=== PATIENT | male | born 1940 | race Caucasian/White ===

== ENCOUNTER 2020-07-19 14:27 | Inpatient (IN) | payer MEDICARE, BC ==
[~2020-07-19] VITALS: Ht 170.2 cm; Wt 60.2 kg
[~2020-07-19 14:27] MED LIST: ATOR10; DONE10 PO; FISH1000 PO; GLUCHON PO; IBUP400 PO; IPRA.03NI; LATA.005SO BOTHEYES; LOSA25 PO; LOSA50 PO; MULVITMIND PO; NASAL SPRAY; Prilosec Otc20 MG; RABE20 PO; TAMS.4ER PO; TIMO.5OPS BOTHEYES
[2020-07-19 15:17] LABS: BASOPHILS ABSOLUTE AUTO 0.04 K/mm3 (0.00-0.23); BASOPHILS PERCENT AUTO 0 % (0-2); EOSINOPHILS PERCENT AUTO 0 % (0-6); Hematocrit 35.8 % (37.0-53.0); Hemoglobin 11.8 g/dL (13.5-17.5); IMMATURE GRAN ABSOLUTE AUTO 0.06 K/mm3 (0.00-0.10); IMMATURE GRAN PERCENT AUTO 0 % (0-1); LYMPHOCYTES ABSOLUTE AUTO 0.37 K/mm3 (0.84-5.20); LYMPHOCYTES PERCENT AUTO 3 % (21-46); MONOCYTES ABSOLUTE AUTO 0.93 K/mm3 (0.16-1.47); MONOCYTES PERCENT AUTO 6 % (4-13); Mean Corpuscular HGB 28.9 pg (26.0-34.0); Mean Corpuscular Volume 88 fL (80-100); Mean Platelet Volume 9.5 fL (9.1-12.4); NEUTROPHILS ABSOLUTE AUTO 13.06 K/mm3 (1.96-9.15); NEUTROPHILS PERCENT AUTO 90 % (41-73); Platelet Count 201 K/mm3 (150-400); RDW Coefficient Variation 14.4 % (11.7-14.2); RDW Standard Deviation 46.1 fL (35.1-46.3); Red Blood Cell Count 4.08 M/mm3 (4.30-5.90); White Blood Cell Count 14.46 K/mm3 (4.00-11.30)
[2020-07-19 15:45] LABS: Albumin, Blood 2.4 g/dL (3.4-5.0); Albumin/Globulin Ratio 0.6 (0.8-1.8); Bilirubin, Total 0.8 mg/dL (0.1-1.0); Bun/Creatinine Ratio 11.1 (12.0-20.0); Creatinine, Blood 9.3 mg/dL (0.60-1.20); Globulin, Blood 3.9 g/dL (2.2-4.0); Potassium, Blood 4.1 mmol/L (3.5-5.5); Total Protein, Blood 6.3 g/dL (6.4-8.2)
[2020-07-19 16:03] LABS: Creatine Kinase MB 7.1 ng/mL (0.0-3.6); Creatine Kinase MB Index 1.3 (0.0-4.0)
[2020-07-19 18:08] LABS: Source, Urine Catheter
[2020-07-19 18:11] LABS: Appearance, Urine Hazy (Clear); Bilirubin, Urine Neg (Neg); Blood, Urine 4+ (Neg); Color, Urine Amber (P-Yellow); Glucose Qualitative, Urine Neg (Neg); Ketones, Urine 1+ (Neg); Leukocyte Esterase, Urine 3+ (Neg); Nitrite, Urine Pos (Neg); Protein, Urine 2+ (Neg); Urobilinogen, Urine NORM (Normal)
[2020-07-19 18:36] LABS: Amorphous Mod (0-Heavy); Bacteria Many /hpf; Red Blood Cells, Urine 0-2 /hpf (0-2); Squamous Epithelial Cells Not Seen /hpf (Few); White Blood Cells, Urine TNTC /hpf (0-5)
--- NOTE | 2020-07-19 19:38 | NUR ---
ARRIVAL TO UNIT AND END OF SHIFT SUMMARY: PATIENT ARRIVED TO UNIT AT 18:30 VIA STRETCHER. PATIENT'S EYES ARE CLOSED. PATIENT RESPONSIVE TO PHYSICAL STIMULI (EX: PATIENT MOVES ARMS AND MOANS TO PUSH RN'S HANDS AWAY DURING ASCULTATION OF ABDOMEN AND HEART). PATIENT'S RAPP CATHETER IS DRAINING FREELY A VERY DARK, YELLOW URINE. PATIENT SMELLS STRONGLY OF URINE. PATIENT HAS BILATERAL SOFT RESTRAINTS IN PLACE. PATIENT UNABLE TO UNDERSTAND CARE AT THIS TIME AND WAS NOT FOLLOWING DIRECTIONS. PATIENT UNABLE TO OPEN EYE LIDS UPON COMMAND. PATIENT MOVING LIMBS FREELY.
--- NOTE | 2020-07-20 04:51 | NUR ---
SHIFT SUMMARY: ORIENTED X 0. PT KEEPS EYES CLOSED AT ALL TIMES. WHEN STAFF INTERACT W/ PT HE BECOMES COMBATIVE- GRABBING, HITTING, AND SQUEEZING STAFF HARD. WHEN ALONE IN ROOM, PT QUIETLY PULLS AT RESTRAINTS, MUMBLES TO SELF AND HEARD SWEARING. REACHES FOR F/C. NOTED TO BE SLEEPING MOST OF THE NIGHT. F/C PATENT AND DRAINING CLOUDY YELLOW URINE. MAINTENANCE FLUIDS INFUSING CONTINUOUSLY PER ORDERS. BED LOW, BED ALARM ON.
[2020-07-20 04:52] LABS: BASOPHILS ABSOLUTE AUTO 0.03 K/mm3 (0.00-0.23); BASOPHILS PERCENT AUTO 0 % (0-2); EOSINOPHILS ABSOLUTE AUTO 0.01 K/mm3 (0.00-0.68); EOSINOPHILS PERCENT AUTO 0 % (0-6); Hemoglobin 12.2 g/dL (13.5-17.5); IMMATURE GRAN ABSOLUTE AUTO 0.06 K/mm3 (0.00-0.10); IMMATURE GRAN PERCENT AUTO 1 % (0-1); LYMPHOCYTES ABSOLUTE AUTO 0.59 K/mm3 (0.84-5.20); LYMPHOCYTES PERCENT AUTO 6 % (21-46); MONOCYTES ABSOLUTE AUTO 0.77 K/mm3 (0.16-1.47); MONOCYTES PERCENT AUTO 7 % (4-13); Mean Corpuscular HGB Conc 32.1 g/dL (31.5-36.5); Mean Corpuscular Volume 90 fL (80-100); Mean Platelet Volume 9.9 fL (9.1-12.4); NEUTROPHILS ABSOLUTE AUTO 8.94 K/mm3 (1.96-9.15); NEUTROPHILS PERCENT AUTO 86 % (41-73); Platelet Count 195 K/mm3 (150-400); RDW Coefficient Variation 14.7 % (11.7-14.2); RDW Standard Deviation 48.4 fL (35.1-46.3); Red Blood Cell Count 4.21 M/mm3 (4.30-5.90)
[2020-07-20 05:14] LABS: Albumin, Blood 2.3 g/dL (3.4-5.0); Anion Gap 7 mmol/L (6-16); Blood Urea Nitrogen 79 mg/dL (8-24); Bun/Creatinine Ratio 17.7 (12.0-20.0); CO2, Blood 22 mmol/L (21-32); Calcium, Blood 8.6 mg/dL (8.5-10.1); Chloride, Blood 115 mmol/L (98-108); Creatinine, Blood 4.46 mg/dL (0.60-1.20); Glomerular Filtration Rate 14 (60-); Glucose, Blood 82 mg/dL (70-99); Phosphorus, Blood 4.6 mg/dL (2.5-4.9); Potassium, Blood 5.3 mmol/L (3.5-5.5); Sodium, Blood 144 mmol/L (136-145)
--- NOTE | 2020-07-20 16:22 | NUR ---
Met with pt's , and daughter Isa who is POA at bedside. According to Isa, pt has been diagnosed with dementia for many years, and it's been gradually worsening. Pt's also has dementia, although it's not nearly as pronounced as pt's. Isa has been the sole CG for both of her parents for several years. Recently, pt stopped eating and refusing to bath. He has continued to drink water with encouragement from Isa. She states she finally decided to call an ambulance last night when pt had become weak, even though he had continued to tell her "No" about going to the hospital. We discussed POLST, and Isa does change code status to DNR. Istrate ok with POLST change, gave ok for v/o for DNR. Pt's daughter tearful today, she states she's been trying to keep her parents home up, as well as keeping them showered, grocery shopping and paying their bills. She is open to the idea of hospice, but does not feel she will be able to care for pt if he is unable to walk anymore, and constantly combative. search engine optimization manager aware. Will follow up tomorrow.
--- NOTE | 2020-07-20 17:50 | NUR ---
COMBATIVE: GRABS AND DIRECTOR BROADCAST WHATEVER HE CAN GET HIS HANDS ON AND SINKS HIS FINGERNAILS. STATES "LEAVE ME ALONE", AND DOES NOT ANSWER ANY QUESTIONS. BALLS HAND INTO A FIST AND FLAILS AT STAFF. OCCASIONALLY KICKS LEGS UP AT STAFF. DOES NOT OPEN EYES, AND GRITS TEETH TO PREVENT ORAL CARE FROM BEING COMPLETED. CALMER POST ZYPREXA. TOLERATED BED BATH AND ORAL CARE.
[2020-07-21 05:45] LABS: BASOPHILS ABSOLUTE AUTO 0.03 K/mm3 (0.00-0.23); BASOPHILS PERCENT AUTO 0 % (0-2); EOSINOPHILS ABSOLUTE AUTO 0.02 K/mm3 (0.00-0.68); EOSINOPHILS PERCENT AUTO 0 % (0-6); Hematocrit 39.3 % (37.0-53.0); Hemoglobin 12.7 g/dL (13.5-17.5); IMMATURE GRAN ABSOLUTE AUTO 0.08 K/mm3 (0.00-0.10); IMMATURE GRAN PERCENT AUTO 1 % (0-1); LYMPHOCYTES ABSOLUTE AUTO 0.93 K/mm3 (0.84-5.20); LYMPHOCYTES PERCENT AUTO 9 % (21-46); MONOCYTES ABSOLUTE AUTO 0.87 K/mm3 (0.16-1.47); MONOCYTES PERCENT AUTO 8 % (4-13); Mean Corpuscular HGB Conc 32.3 g/dL (31.5-36.5); Mean Corpuscular Volume 90 fL (80-100); Mean Platelet Volume 9.7 fL (9.1-12.4); NEUTROPHILS ABSOLUTE AUTO 8.54 K/mm3 (1.96-9.15); NEUTROPHILS PERCENT AUTO 82 % (41-73); Platelet Count 239 K/mm3 (150-400); RDW Coefficient Variation 14.8 % (11.7-14.2); RDW Standard Deviation 48.3 fL (35.1-46.3); Red Blood Cell Count 4.38 M/mm3 (4.30-5.90); White Blood Cell Count 10.47 K/mm3 (4.00-11.30)
--- NOTE | 2020-07-21 05:54 | NUR ---
SHIFT SUMMARY AOXSELF & FOLLOWING SIMPLE DIRECTIONS. ABLE TO STICK OUT TONGUE WHEN ASKED. VSS. OPENS EYES MINIMALLY TO VERBAL STIMULI. FREQUENTLY FOUND TALKING TO HIS "DAD" OR "MOM" IN , STATES "DONT YOU SEE MY DAD OVER THERE?" HAVING VISUAL & AUDITORY HALLUCINATIONS. GETS VERY AGRESSIVE, COMBATIVE, AGITATED c ANY CARE BEING PROVIDED. USES PROFANITY @STAFF, TRYS TO GRAB, HIT, DIG NAILS INTO, KICK. TOOK 3 PEOPLE TO PERFORM CATH CARE, REPOSITION, CHANGE ATTENDS. MEDICATED 2X c 10MG ZYPREXA, PT MORE COOPERATIVE & RESTED AFTER. CALL LIGHT & BED ALARM IN PLACE. WILL MONITOR.
[2020-07-21 06:00] LABS: Albumin, Blood 2.4 g/dL (3.4-5.0); Anion Gap 11 mmol/L (6-16); Blood Urea Nitrogen 41 mg/dL (8-24); Bun/Creatinine Ratio 29.5 (12.0-20.0); CO2, Blood 19 mmol/L (21-32); Calcium, Blood 8.4 mg/dL (8.5-10.1); Chloride, Blood 122 mmol/L (98-108); Creatinine, Blood 1.39 mg/dL (0.60-1.20); Glomerular Filtration Rate 52 (60-); Glucose, Blood 82 mg/dL (70-99); Magnesium, Blood 2.1 mg/dL (1.6-2.4); Phosphorus, Blood 2.5 mg/dL (2.5-4.9); Potassium, Blood 3.5 mmol/L (3.5-5.5); Sodium, Blood 152 mmol/L (136-145)
--- NOTE | 2020-07-21 12:44 | NUR ---
Pt is now on Comfort Care, daughter Isa is aware and in agreement. POLST filled out and signed for DNR status. Will continue with ST diet recommendations unless daughter disagrees. Pt does not appear to be in any pain or distress at this time. Will remain available to family and pt as needed.
--- NOTE | 2020-07-21 21:10 | NUR ---
CHANGES SAW PT DURING SHIFT CHANGE @BEDSIDE REPORT, APPEARED COMFORTABLE. UNTIED WRIST RESTRAINTS @2004. PT STILL RESTING COMFORTABLE. IN NO DISTRESS. CAME INTO RM @210 PT . MATTHEW Hernandez CONFIRMED NO HEART BEAT. NOTIFIED CHARGE NURSE PATRICE MCCAULEY. WILL NOTIFY FAMILY.
--- NOTE | 2020-07-21 22:55 | NUR ---
COMMUNICATION TRIED CALLING DAUGHTER BRAULIO CHANDLER @[phone] & [phone], TO NOTIFY ABOUT PT PASSING. NO ANSWER & NO RETURNED CALLS YET. INFORMED ADITI Baig @[id number].
== END 2020-07-21 21:05 | DRG 682 ==
LOC: ER 14:27 → MEDS 16:34
PROVIDERS: Family Medicine; Nurse Practitioner Acute Care; Student in an Organized Health Care Education/Training Program; ADMIT Internal Medicine
DX: N17.9 Acute kidney failure, unspecified (principal); G92 Toxic encephalopathy; N39.0 Urinary tract infection, site not specified; F02.81 Dementia in other diseases classified elsewhere, unspecified severity, with behavioral disturbance; E44.0 Moderate protein-calorie malnutrition; Z68.21 Body mass index [BMI] 21.0-21.9, adult; R62.7 Adult failure to thrive; Z51.5 Encounter for palliative care; G30.9 Alzheimer's disease, unspecified; I10 Essential (primary) hypertension; N40.0 Benign prostatic hyperplasia without lower urinary tract symptoms; Z87.442 Personal history of urinary calculi; K21.9 Gastro-esophageal reflux disease without esophagitis; Z98.890 Other specified postprocedural states; Z85.828 Personal history of other malignant neoplasm of skin; Z98.49 Cataract extraction status, unspecified eye; Z87.891 Personal history of nicotine dependence; Z79.899 Other long term (current) drug therapy; E86.0 Dehydration
CPT/HCPCS: 36415; 51702; 71045; 80053; 80069; 81001; 82550; 82553; 83605; 83735; 85025; 87040; 87077; 87086; 87186; 92523; 92610; 93005; 93010; 96360-59; 96361-59; 97166; 97530; 99285-25; A9270; J0696; J1644; J2060; J7030